=== PATIENT | female | born 1960 | race African-American/Black ===

== ENCOUNTER 2022-04-04 05:26 | Emergency (ER) | payer MEDICAID ==
[~2022-04-04] VITALS: Ht 162.6 cm; Wt 66.0 kg
[2022-04-04 07:54] VITALS: BP 126/66
[2022-04-04] MEDS ORDERED: KETOROLAC 60MG/2ML VIAL IM ONE (08:00)
[2022-04-04] MEDS ORDERED: AMOXICILLIN/POTASSIUM CLAVULANATE 875/125MG TAB PO ONE (11:15)
[2022-04-04] MEDS ORDERED: HYDR-4001 MT (11:35)
== END 2022-04-04 14:16 | disposition home or self-care (01) ==
LOC: ER 05:26
DX: M54.50 Low back pain, unspecified (principal); Z88.6 Allergy status to analgesic agent; Z88.5 Allergy status to narcotic agent
CPT/HCPCS: 82962; 96372; 99283; J1885